=== PATIENT | female | born 1965 | race Caucasian/White ===

== ENCOUNTER 2018-06-24 22:23 | Emergency (ER) | payer OTHER ==
[~2018-06-24] VITALS: Ht 162.6 cm; Wt 67.6 kg
[2018-06-24] MEDS ORDERED: ADDERALL XR 2020 MG (22:37)
[2018-06-24 22:53] LABS: ABSOLUTE LYMPHOCYTES 2.3 thou/uL (0.8-5.3); ABSOLUTE MONOCYTES 0.9 thou/uL (0.0-1.2); ABSOLUTE NEUTROPHILS 7.7 thou/uL (1.6-8.1); BASOPHILS 0.2 %; EOSINOPHILS 0.4 %; HEMATOCRIT 39.3 % (37.0-47.0); HEMOGLOBIN 13.3 gm/dL (12.0-15.0); LYMPHOCYTES 20.7 %; MCH 31.2 pg (26.0-34.0); MCHC 33.9 g/dL (28.0-37.0); MCV 92.2 fL (80.0-100.0); MONOCYTES 8.2 %; MPV 9.4 fl. (7.2-11.1); NUCLEATED RBCS 0 /100WBC; PLATELET COUNT* 246 thou/uL (150-400); POLYS 70.5 %; RBC 4.27 mil/uL (4.20-5.00); WBC 10.9 thou/uL (4.0-11.0)
[2018-06-24 23:02] LABS: ANION GAP 5 mmol/L (7-16); BUN 14 mg/dL (7-18); CHLORIDE 101 mmol/L (98-107); CO2 29 mmol/L (21-32); CREATININE 0.8 mg/dL (0.6-1.3); GLUCOSE 122 mg/dL (70-99); POTASSIUM 3.7 mmol/L (3.5-5.1); SODIUM 135 mmol/L (136-145)
[2018-06-24 23:08] LABS: ALBUMIN 3.6 g/dL (3.4-5.0); ALKALINE PHOSPHATASE 69 U/L (46-116); LIPASE 135 U/L (73-393); SGOT 17 U/L (15-37); SGPT 27 U/L (30-65); TOTAL BILIRUBIN 0.4 mg/dL (<0.1-1.0); TOTAL PROTEIN 7.7 g/dL (6.4-8.2); TROPONIN-I LEVEL <0.06 ng/mL (<0.06)
[2018-06-24 23:23] LABS: URINE BILIRUBIN NEGATIVE (Negative); URINE BLOOD NEGATIVE (Negative); URINE CLARITY CLEAR; URINE COLOR YELLOW; URINE GLUCOSE-RANDOM NEGATIVE (Negative); URINE KETONES NEGATIVE (Negative); URINE LEUKOCYTES-REFLEX NEGATIVE (Negative); URINE NITRITE-REFLEX NEGATIVE (Negative); URINE PROTEIN NEGATIVE (Negative); URINE SPECIFIC GRAVITY 1.025 (1.005-1.030); URINE UROBILINOGEN 0.2 E.U./dl (0.2-1.0)
[2018-06-24] MEDS ORDERED: CIPROFLOXACIN500 M1 PO (23:55)
[2018-06-25 00:20] VITALS: BP 149/97
--- NOTE | 2018-06-25 15:55 | EKG ---
[place] [address] ELECTROCARDIOGRAM REPORT Name: RACHEL MELCHOR Room: [facility]#: [id number] Admission: 06/24/18 Attend Phys: Discharge: 06/25/18 Date of : 63 Report #: [id number] THIS REPORT FOR: //name// [facility] ED Test Date: 2018-06-24 Test Time: 23:50:57 Pat Name: RACHEL MELCHOR Department: Room: Gender: [facility] Assistant Director: MELE : 1965 Requested By: Caleb Rebollar Order Number: [id number] MD: Joseluis Alarcon Measurements Intervals [place] Rate: 82 P: 43 MI: 132 QRS: 31 QRSD: 88 T: 0 QT: 357 QTc: 417 Interpretive Statements Sinus rhythm Borderline T abnormalities, diffuse leads No previous ECG available for comparison Electronically Signed On 06-25-2018 15:55:42 CDT by Joseluis Alarcon [email or web address] <ELECTRONICALLY SIGNED> By: Joseluis Alarcon MD, [facility] 06/25/18 1555 2350 2350 Joseluis Alarcon MD, FACC /EPI
== END 2018-06-25 00:23 | disposition home or self-care (01) ==
LOC: M.ERS 22:23
PROVIDERS: Family Medicine
DX: R10.31 Right lower quadrant pain (principal)